=== PATIENT | female | born 1970 | race African-American/Black ===

== ENCOUNTER 2020-03-30 18:05 | Inpatient (IN) | payer MEDICAID, OTHER ==
[~2020-03-30] VITALS: Ht 177.8 cm; Wt 62.1 kg
[2020-03-30] MEDS ORDERED: SODIUM CHLORIDE 0.9% 1,000 ML IV ONE (22:58)
[2020-03-30] MEDS ORDERED: FAMOTIDINE 20MG/2ML VIAL IV STA (22:58)
[2020-03-31] VITALS (24 sets, daily range): BP systolic 94–119; BP diastolic 35–77
[2020-03-31 00:04] LABS: CHLORIDE 109 mEq/L (98-107)
[2020-03-31 00:06] LABS: INR 1.1; PROTHROMBIN TIME 11.3 sec (9.6-11.0)
[2020-03-31 00:42] LABS: MEAN CORPUSCULAR VOLUME 64.9 fL (81.0-99.0); MEAN PLATELET VOLUME 8.3 fl (7.4-10.4); PLATELET 216 x1000/uL (130-400); RED BLOOD CELL COUNT 1.81 mill/uL (4.2-5.4); RED CELL DISTRIBUTION WIDTH 19.2 % (11.6-14.6)
[2020-03-31 00:47] LABS: HEMATOCRIT. 11.7 % (36.0-48.0); HEMOGLOBIN. 3.4 g/dL (12.0-16.0)
[2020-03-31 01:04] LABS: PLATELET ESTIMATE NORMAL
[2020-03-31] MEDS ORDERED: IOHEXOL-300 100 ML BOTTLE ONE (01:34)
[2020-03-31] MEDS ORDERED: SODIUM CHLORIDE 0.9% 1,000 ML IV SCH (04:45)
[2020-03-31] MEDS ORDERED: ONDANSETRON HCL 4MG/2ML INJ IV PRN (08:30)
[2020-03-31] MEDS: PANTOPRAZOLE SODIUM 40 MG/VIAL IV SCH ×2 (08:31→21:00)
[2020-03-31 09:41] LABS: MEAN CORPUSCULAR HEMOGLOBIN 22.1 pg (28.0-32.0); MEAN CORPUSCULAR VOLUME 71.5 fL (81.0-99.0); MEAN PLATELET VOLUME 8.2 fl (7.4-10.4); PLATELET 190 x1000/uL (130-400); RED BLOOD CELL COUNT 2.38 mill/uL (4.2-5.4); RED CELL DISTRIBUTION WIDTH 22.8 % (11.6-14.6)
[2020-03-31 09:48] LABS: CHLORIDE 111 mEq/L (98-107)
[2020-03-31 09:52] LABS: HEMOGLOBIN. 5.3 g/dL (12.0-16.0)
[2020-03-31 10:22] LABS: VITAMIN B12 SERUM 454 pg/mL (211-911)
[2020-03-31 11:04] LABS: PLATELET ESTIMATE NORMAL
[2020-03-31 21:51] LABS: TOTAL IRON BINDING CAPACITY 379 ug/dL (250-450)
[2020-03-31 22:06] LABS: FOLIC ACID (FOLATE) SERUM 16.8 ng/mL (>5.38)
[2020-03-31 22:46] LABS: HEMATOCRIT 24.9 % (36.0-48.0); HEMOGLOBIN 8.1 g/dL (12.0-16.0)
[2020-04-01] VITALS: BP 119/49
[2020-04-01 00:11] VITALS: BP 119/49
[2020-04-01 02:00] VITALS: BP 115/66
== END 2020-04-01 02:30 | disposition short-term general hospital (02) | DRG 663 ==
LOC: ER 18:05 → 5EST 03-31 00:48 → ENRESERV 03-31 01:28
PROVIDERS: ADMIT Internal Medicine; ATTEND Internal Medicine
PROC: 30233N1 Transfusion of Nonautologous Red Blood Cells into Peripheral Vein, Percutaneous Approach (ICD-10-PCS; principal; 2020-03-31)
DX: D50.9 Iron deficiency anemia, unspecified (principal); G90.8 Other disorders of autonomic nervous system; D72.819 Decreased white blood cell count, unspecified; E44.1 Mild protein-calorie malnutrition; E87.8 Other disorders of electrolyte and fluid balance, not elsewhere classified; D49.0 Neoplasm of unspecified behavior of digestive system; K57.32 Diverticulitis of large intestine without perforation or abscess without bleeding; Z90.711 Acquired absence of uterus with remaining cervical stump; Z68.1 Body mass index [BMI] 19.9 or less, adult
CPT/HCPCS: 36415; 71045; 74177; 80053; 82270; 82378; 82607; 82728; 82746; 83540; 83550; 84484; 85014; 85018; 85025; 86850; 86900; 86920; 93005; 99291; C9113; J3490; J7030; P9016; Q9967